=== PATIENT | male | born 1950 | race Caucasian/White ===

== ENCOUNTER 2018-12-06 12:06 | Inpatient (IN) ==
[2018-12-06] MEDS ORDERED: EPINEPHRINE ADULT AUTO-INJECT 0.3 MG SYR IM ONE (12:27)
[2018-12-06] MEDS ORDERED: DiphenhydrAMINE HCL 50 MG/ML VIAL IV STA ×2 (12:31→13:38)
[2018-12-06] MEDS ORDERED: methylPREDNISolone 125 MG/2 ML VIAL IV STA (12:31)
[2018-12-06] MEDS ORDERED: SODIUM CHLORIDE 0.9% 1000ML 1,000 ML IV ONE (12:32)
[2018-12-06] MEDS ORDERED: SODIUM CHLORIDE 0.9% 1000ML 1,000 ML IV SCH (12:45)
[2018-12-06 12:49] LABS: Basophils # (auto) 0.04 K/uL (0-0.2); Basophils % (auto) 0.6 %; Eosinophils % (auto) 1.5 %; Hemoglobin 14.7 g/dL (14.0-18.0); Immature Granulocytes # (auto) 0.01 K/uL (0.00-0.02); Immature Granulocytes % (auto) 0.1 %; Lymphocytes # (auto) 1.34 K/uL (1.2-3.4); Lymphocytes % (auto) 19.9 %; Mean Corpuscular Hemoglobin 37.6 pg (25-34); Mean Corpuscular Hgb Conc 36.8 g/dL (32-36); Mean Corpuscular Volume 102.3 fL (80-100); Mean Platelet Volume 10.4 fL (7.4-10.4); Monocytes # (auto) 0.91 K/uL (0.11-0.59); Monocytes % (auto) 13.5 %; Neutrophils # (auto) 4.32 K/uL (1.4-6.5); Neutrophils % (auto) 64.4 %; Platelet Count 212 K/uL (130-400); RDW Coefficient of Variation 13.4 % (11.5-14.5); RDW Standard Deviation 50.2 fL (36.4-46.3); Red Blood Count 3.91 M/uL (4.7-6.1); White Blood Count 6.72 K/uL (4.8-10.8)
[2018-12-06 12:56] LABS: Albumin Level 4.1 gm/dl (3.4-5.0); BUN Creatinine Ratio 17.7 (10-20); Calcium 9.4 mg/dl (8.5-10.1); Creatinine Clr Calc Pharmacy 80.6 ml/min; Est GFR (African American) 100.7; Est GFR (Non-African American) 86.9; Potassium 3.9 mmol/L (3.5-5.1)
[2018-12-06 12:59] LABS: Albumin Globulin Ratio 1.1 (0.9-2); Bilirubin,Total 1.4 mg/dl (0.2-1); Globulin 3.7 gm/dl (2.5-4.0); Total Protein 7.8 gm/dl (6.4-8.2)
--- NOTE | 2018-12-06 13:01 | XRay Report ---
XR chest 1V portable HISTORY: allergic reaction COMPARISON: None. FINDINGS: The lungs are clear. Cardiac silhouette is normal in size. No pleural effusions. No pneumot horax. IMPRESSION: No acute process. Electronically signed by: Lloyd Rush M.D. 12/06/2018 1:00 PM
[2018-12-06] MEDS ORDERED: RACEPINEPHRINE 2.25% NEBU SOLN 0.5 ML VIAL NEB STA (13:38)
--- NOTE | 2018-12-06 15:06 | History & Physical Report ---
Date of Service December 06, 2018 Assessment & Plan (1) Angioedema: Patient with 3 previous episodes of angioedema with each episode becoming more progressive. Patient received racemic epinephrine nebulizer, diphenhydramine, ranitidine, and Solu-Medrol in the emergency department We will admit to the intensive care unit for monitoring Patient does have dysphonia but overall clinically is improving Discussed with Dr. Hernandez. Continue methylprednisolone, diphenhydramine, racemic epinephrine nebulizers (2) Hypertension: Home medications include Coreg 6.25 mg p.o. twice daily as well as lisinopril/HCTZ as an outpatient Due to multiple episodes of angioedema, would discontinue lisinopril Will request records from patient's primary care physician Continue Coreg 6.25 mg p.o. twice daily. I have asked the nurse to do a bedside swallow eval to make sure the patient can take pills Further management of hypertension will be deferred to the critical care team (3) Hyperlipidemia: Continue atorvastatin (4) History of tobacco abuse: [id number] history. Quit smoking 40 years ago. No need for smoking cessation counseling. (5) DVT prophylaxis: No chemical prophylaxis in the event the patient needs to have emergent intubation SURESH hose/SCDs Please refer to Dr. Bryant's addendum for further recommendations. History of Present Illness Attending: Dr. Bryant This is a 68 yo male with a PMH of hypertension, hyperlipidemia, tobacco abuse history, seasonal allergies, previous angioedema. This is a 68-year-old male that is in town for the weekend. He lives in [place] but also has a home in [facility]. He was tailgating this weekend and this morning at approximately 8:30 AM, identified some tongue and throat swelling. He reports that this is happened 3 times in the past and that he self treated at home with Benadryl and over period of hours to a day it resolved at home. His notes that each episode seems to get more severe. Due to his history he has had presented to the emergency department where he was seen in room A1 and found to have angioedema with dysphonia. He has no respiratory distress and no hypoxia. He does have a coarse voice with no evidence of stridor on examination. The patient denies any recent illness. Aside from tailgating yesterday he has had no new or unusual foods no medications or new prescriptions. The patient denies any fever, chills, sweats, rigors. He has no cough. He has no chest pain or tightness. He has no other acute complaints. The patient does have an allergy to sulfa drugs. He also reports that on previous occasions he has had red or white wine prior to the angioedema. He has no other food or drug allergies per his report. The patient has a history of tobacco abuse with a [id number] history. He states that he states that he quit smoking 40 years ago. Aside from his acute angioedema, the patient has no acute complaints. Primary Care Provider: NO PCP Allergies Allergy/AdvReac Type Severity Reaction Status Date / Time lisinopril Allergy Severe Angioedema Verified 12/06/18 16:08 sulfite Allergy Swelling Verified 12/06/18 18:23 of Lip/Tongue/Throat Home Medications Home Medications Medication Instructions Recorded Confirmed Type atorvastatin [Lipitor] 40 mg PO QAM 12/06/18 12/06/18 History carvedilol [Coreg] 6.25 mg PO BID 12/06/18 12/06/18 History lisinopril-hydrochlorothiazide 1 tab PO QAM 12/06/18 12/06/18 History [Zestoretic] loratadine [Claritin] 10 mg PO QAM 12/06/18 12/06/18 History Past Med/Surg History Medical History Allergic reaction to sulfonamide DVT prophylaxis History of angioedema History of tobacco abuse Hyperlipidemia Hypertension No significant past surgical history Seasonal allergies Family History Other No significant family history Social History Preferred Language: Slovenian Communication Ability: Effective Beliefs That Will Affect Care: None Current Living Situation: Spouse Other Information That Helps Us Care for You: No Feels Safe at Home: Yes Safety Concerns: Feels Safe At This Time Smoking Status: Former smoker Hx Alcohol Use: Yes Alcohol type: beer and hard liquor Hx Substance Use: No Review of Systems Constitutional: no fever, no chills, no sweats, no body aches, no fatigue, no malaise and no weakness Eyes: no diplopia, no dry eyes, no itchy eyes and no photophobia Ear, Nose, Mouth, Throat: as per Subjective / HPI and + hoarseness (Hoarseness since this morning); no foul smell, no mouth lesions, no dental caries and no bleeding gums Respiratory: no cough, no dyspnea, no pain on inspiration, no sputum production and no wheezing Cardiovascular: no chest pain, no dyspnea, no palpitations and no calf pain Gastrointestinal: no nausea, no vomiting, no coffee ground emesis and no constipation Genitourinary: no hematuria Musculoskeletal: no muscle weakness Integumentary: no rash and no lesions Neurologic: no problem reported Endocrine: no polydipsia and no polyuria Allergy / Immunological: + throat swelling and + tongue swelling; no urticaria, no wheezing, no cough, no dyspnea and no rash Physical Exam Physical Exam: GENERAL : No acute distress. EYES: No icterus, gaze conjugate. Pupils equal round reactive to light NOSE: No evidence of epistaxis. No evidence of septal breech MOUTH: No lesions or candidiasis. Tongue is midline. There is soft tissue edema noted. Uvula is edematous. Mallampati score of 4. Posterior oropharynx noted below the uvula NECK: Supple. No stridor. LUNGS: CTA B/L, no wheezes, rales or rhonchi. HEART: Regular, rate controlled. No murmurs or gallops or rubs appreciated ABDOMEN: Soft, NT, ND, BS Present EXTREMITIES: No LE edema, pedal pulses intact. NEURO: A&OX3. No focal deficits appreciated Results & Data Vital Signs (Past 12 Hours) Vital Signs Temp Pulse Pulse Resp BP Pulse Ox 12/06/18 14:46 71 19 156/94 H 97 12/06/18 14:30 66 16 162/91 H 96 12/06/18 14:15 62 15 162/96 H 99 12/06/18 14:00 65 16 157/93 H 98 12/06/18 13:47 74 16 100 12/06/18 13:45 69 15 166/96 H 99 12/06/18 13:30 61 14 141/84 H 100 12/06/18 13:15 57 L 18 146/83 H 100 12/06/18 13:00 59 L 15 151/85 H 100 12/06/18 12:45 61 13 167/87 H 100 12/06/18 12:39 71 19 159/100 H 99 12/06/18 12:34 99 12/06/18 12:30 62 15 179/110 H 99 10/20/19 12:16 37.0 C 70 18 168/103 H 97 12/06/18 12:06 99 Laboratory Results 12/06/18 12:25 12/06/18 12:25 Diagnostic Findings XR chest 1V portable HISTORY: allergic reaction COMPARISON: None. FINDINGS: The lungs are clear. Cardiac silhouette is normal in size. No pleural effusions. No pneumothorax. IMPRESSION: No acute process. Electronically signed by: Lloyd Rush M.D. 12/06/2018 1:00 PM Medications Administered Medications administered in the emergency department: Diphenhydramine 50 mg IV x2 Racemic epinephrine nebulizer treatment Methylprednisolone 125 mg IV Ranitidine 50 mg IV NSS x2 L Code Status & VTE Plan Code Status Full resuscitation VTE Prophylaxis Plan VTE Prophylaxis will be ordered: Yes Critical Care Time Critical Care Time: Yes Total Critical Care Time: 35 Supervising Physician Co-Signing Physician Notes HISTORY: Record reviewed. Patient interviewed and examined. Care coordinated with Marco Antonio Webb PA-C. Please refer to his documentation for patient's history. Briefly, 68-year-old male with history of hypertension and other problems. Few incidence of apparent angioedema in the past, attributed to possible sulfite allergy. Medications include lisinopril/hydrochlorothiazide. Rarely uses nonsteroidal anti-inflammatory drugs. Developed swelling of his tongue and throat this morning and had progressive difficulty speaking. No stridor or respiratory distress. Brought to ED for evaluation. Received intravenous methylprednisolone, diphenhydramine, ranitidine, and racemic epinephrine with improvement of his symptoms. EXAM: General- no distress ENT- muffled voice; uvula edematous; mild-moderate swelling of tongue; no swelling of lips Neck- no stridor Lungs- clear to auscultation; no respiratory distress Cardiovascular- RRR; no murmur; no gallop; no JVD; no pretibial edema Abdomen- + bowel sounds, soft, nontender Extremities- no cyanosis; no calf tenderness Neuro- alert, oriented Skin- warm & dry DATA: Hemoglobin 14.7, white count 6720, platelet count 212,000. Peripheral eosinophil count 1.5%. Profile showed normal electrolytes, BUN 16, creatinine 0.91, glucose 87, total bilirubin 1.4, AST 84, ALT 71, alkaline phosphatase 59. Other lab studies as noted. Chest x-ray reviewed By the undersigned and formally interpreted by Radiology. Normal cardiac silhouette. No infiltrates, effusions, CHF. EKG performed at 1226 reviewed and demonstrated normal sinus rhythm at 70/ minute, no acute ST or T wave abnormalities. ASSESSMENT AND PLAN: Angioedema, most likely secondary to lisinopril. Discontinue lisinopril/hydrochlorothiazide. Avoid nonsteroidal anti-inflammatory drugs. Check C4 level. Continue steroids, antihistamines, racemic epi. Admit to ICU for monitoring of airway. CCM consulted. Continue carvedilol for hypertension. Discontinue lisinopril/hydrochlorothiazide because of angioedema. ANABELLA inhibitors should be avoided in the future. Add second antihypertensive agent to carvedilol if blood pressures significantly elevated. Follow and titrate therapy. Please refer to ERICA Webb's documentation for discussion of other issues. (1) Angioedema Encounter type: initial encounter Qualified Code(s): T78.3XXA - Angioneurotic edema, initial encounter
--- NOTE | 2018-12-06 16:46 | Emergency Department Note ---
Entered by Keisha Nichols acting as a scribe for History of Present Illness General Chief complaint: Allergic Reaction Source: patient and family History of Present Illness Onset (ago): hour(s) 4 Location: head (Allergic reaction) Severity: similar to prior episodes Pain Consistency: + other (Episode) Quality: + other (Allergic reaction) Exacerbated By: + other (Sulfa) Associated symptoms: + rash, + shortness of breath and + other (swelling, trouble speaking, trouble swallowing) The patient is a 68 year old male presenting to the Emergency Department co mplaining of an episode of an allergic reaction starting at 0830 today. The patients reports that the patient began to get a rash earlier this morning. She states that the patients mouth began to swell and that he became short of breath. She explains that the patient is having trouble speaking and swallowing. She notes that the patient is allergic to sulfates and drank white wine yesterday at 1700 and believes that the white wine had sulfates in it. She adds that the patients symptoms didnt begin until this morning. The patients reports that the patient has experienced these symptoms before. She states that about 1 year ago the patient drank Prosecco and experienced these same symptoms. The patient denies pertinent cardiac history. Home Medications Home Medications Medication Instructions Recorded Confirmed Type atorvastatin [Lipitor] 40 mg PO QAM 12/06/18 12/06/18 History carvedilol [Coreg] 6.25 mg PO BID 12/06/18 12/06/18 History lisinopril-hydrochlorothiazide 1 tab PO QAM 12/06/18 12/06/18 History [Zestoretic] loratadine [Claritin] 10 mg PO QAM 12/06/18 12/06/18 History amlodipine 5 mg PO DAILY #30 tab 12/07/18 Rx hydrochlorothiazide 25 mg PO QAM #30 tab 12/07/18 Rx prednisone 40 mg PO DAILY 3 Days #6 tab 12/07/18 Rx Allergies Allergy/AdvReac Type Severity Reaction Status Date / Time lisinopril Allergy Severe Angioedema Verified 12/06/18 16:08 sulfite Allergy Swelling Verified 12/06/18 18:23 of Lip/Tongue/Throat Past Med/Surg History Medical History Allergic reaction to sulfonamide DVT prophylaxis History of angioedema History of tobacco abuse Hyperlipidemia Hypertension No significant past surgical history Seasonal allergies Family History Other No significant family history Social History Preferred Language: Icelandic Communication Ability: Effective Beliefs That Will Affect Care: None Current Living Situation: Spouse Other Information That Helps Us Care for You: No Feels Safe at Home: Yes Safety Concerns: Feels Safe At This Time Smoking Status: Former smoker Hx Alcohol Use: Yes Alcohol type: beer and hard liquor Hx Substance Use: No Review of Systems See HPI for pertinent positives & negatives. and A total of 10 systems reviewed and were otherwise negative Physical Exam Vital Signs Vital Signs - 24 hr 12/06/18 12:06 12/06/18 12:16 12/06/18 12:30 Temperature 37.0 C Temperature Source Oral Sepsis Recent Fever Within 48 Hours No Sepsis New/Unexplained Change in Mental Status No Sepsis Action Taken by Nursing No Action Required Pulse Rate 70 62 Pulse Rate [Apical] Pulse Rate from SpO2 Sensor 61 Respiratory Rate 18 15 Respiratory Effort / Characteristics Non-Labored Spontaneous Blood Pressure 168/103 H 179/110 H Blood Pressure Mean 124 133 Blood Pressure Position Sitting Pulse Oximetry 99 97 99 Oxygen Delivery Method Room Air Room Air Room Air 12/06/18 12:34 12/06/18 12:39 12/06/18 12:45 Temperature Temperature Source Sepsis Recent Fever Within 48 Hours Sepsis New/Unexplained Change in Mental Status Sepsis Action Taken by Nursing Pulse Rate 71 61 Pulse Rate [Apical] Pulse Rate from SpO2 Sensor 69 62 Respiratory Rate 19 13 Respiratory Effort / Characteristics Blood Pressure 159/100 H 167/87 H Blood Pressure Mean 119 113 Blood Pressure Position Pulse Oximetry 99 99 100 Oxygen Delivery Method Room Air Room Air Room Air 12/06/18 13:00 12/06/18 13:15 12/06/18 13:30 Temperature Temperature Source Sepsis Recent Fever Within 48 Hours Sepsis New/Unexplained Change in Mental Status Sepsis Action Taken by Nursing Pulse Rate 59 L 57 L 61 Pulse Rate [Apical] Pulse Rate from SpO2 Sensor 59 L 58 L 59 L Respiratory Rate 15 18 14 Respiratory Effort / Characteristics Blood Pressure 151/85 H 146/83 H 141/84 H Blood Pressure Mean 107 104 103 Blood Pressure Position Pulse Oximetry 100 100 100 Oxygen Delivery Method Room Air Room Air Room Air 12/06/18 13:45 12/06/18 13:47 12/06/18 14:00 Temperature Temperature Source Sepsis Recent Fever Within 48 Hours Sepsis New/Unexplained Change in Mental Status Sepsis Action Taken by Nursing Pulse Rate 69 65 Pulse Rate [Apical] 74 Pulse Rate from SpO2 Sensor 69 67 Respiratory Rate 15 16 16 Respiratory Effort / Characteristics Spontaneous Blood Pressure 166/96 H 157/93 H Blood Pressure Mean 119 114 Blood Pressure Position Pulse Oximetry 99 100 98 Oxygen Delivery Method Room Air Room Air Room Air 12/06/18 14:15 12/06/18 14:30 12/06/18 14:46 Temperature Temperature Source Sepsis Recent Fever Within 48 Hours Sepsis New/Unexplained Change in Mental Status Sepsis Action Taken by Nursing Pulse Rate 62 66 71 Pulse Rate [Apical] Pulse Rate from SpO2 Sensor 63 68 72 Respiratory Rate 15 16 19 Respiratory Effort / Characteristics Blood Pressure 162/96 H 162/91 H 156/94 H Blood Pressure Mean 118 114 114 Blood Pressure Position Pulse Oximetry 99 96 97 Oxygen Delivery Method Room Air Room Air 12/06/18 15:00 12/06/18 15:15 12/06/18 15:30 Temperature Temperature Source Sepsis Recent Fever Within 48 Hours Sepsis New/Unexplained Change in Mental Status Sepsis Action Taken by Nursing Pulse Rate 65 66 65 Pulse Rate [Apical] Pulse Rate from SpO2 Sensor 64 65 67 Respiratory Rate 16 18 16 Respiratory Effort / Characteristics Blood Pressure 161/94 H 146/90 H 152/95 H Blood Pressure Mean 116 108 114 Blood Pressure Position Pulse Oximetry 97 95 96 Oxygen Delivery Method 12/06/18 15:45 12/06/18 16:00 Temperature Temperature Source Sepsis Recent Fever Within 48 Hours Sepsis New/Unexplained Change in Mental Status Sepsis Action Taken by Nursing Pulse Rate 66 78 Pulse Rate [Apical] Pulse Rate from SpO2 Sensor 67 80 Respiratory Rate 16 27 H Respiratory Effort / Characteristics Blood Pressure 150/90 H Blood Pressure Mean 110 Blood Pressure Position Pulse Oximetry 95 98 Oxygen Delivery Method Vital signs reviewed. General: Well-appearing 68 year old male, in no significant distress. HEENT: Posterior oropharynx is markedly edematous with enlarged uvula with severe edema. No tongue swelling. Patient is not drooling. No rash. No scleral icterus, PERRLA, neck supple. Atraumatic. Cardiovascular: Regular rate and rhythm, no extra sounds. Pulmonary: Clear to auscultation bilaterally, normal work of breathing. Abdomen: Soft, nontender, nondistended, positive bowel sounds. Musculoskeletal: Atraumatic, no peripheral edema. Neurologic: Patient awake alert and oriented x 3 Skin: Warm, dry, no rash Course 1224: The patient was evaluated in room A1, and a complete history and physical examination were performed. 1331: I reevaluated the patient at this time. 1331: I reevaluated the patient at this time. I will order an epinephrine nebulizer and additional Benadryl. 1405: I reevaluated the patient at this time. 1412: I discussed the patients case with Dr. Gregoria Handley hospitalist. He will evaluate the patient for further management. 1416: I discussed the patients case with Dr. Hernandez Director Of Recruiting. Administered Medications Atorvastatin Calcium (Lipitor) 40 mg PO QAM [facility] Stop: 01/06/19 08:59 Last Admin: 12/07/18 07:56 Dose: 40 mg Documented by: [id number] Carvedilol (Coreg) 6.25 mg PO BID [facility] Stop: 01/05/19 20:59 Last Admin: 12/07/18 07:56 Dose: 6.25 mg Documented by: [id number] Admin: 12/06/18 20:00 Dose: 6.25 mg Documented by: [id number] Epinephrine (Raccemic Epinephrine 2.25% 0.5ml) 0.5 ml NEB Q4 PRN PRN Reason: Allergic Reaction Stop: 01/05/19 18:15 Last Admin: 12/06/18 23:22 Dose: 0.5 ml Documented by: [id number] Hydralazine HCl (Hydralazine Hcl) 5 mg IV Q4 PRN PRN Reason: Hypertension Stop: 01/05/19 18:17 Last Admin: 12/06/18 18:37 Dose: 5 mg Documented by: [id number] Sodium Chloride (Nss 1000ml) 1,000 mls @ 75 mls/hr IV .[id number] [facility] Stop: 01/05/19 16:47 Last Admin: 12/07/18 06:18 Dose: 75 mls/hr Documented by: [id number] Infusion: 12/07/18 06:17 Dose: 75 mls/hr Documented by: [id number] Admin: 12/06/18 16:57 Dose: 75 mls/hr Documented by: [id number] Discontinued Medications Amlodipine Besylate (Norvasc) 5 mg PO NOW ONE Stop: 12/07/18 08:50 Last Admin: 12/07/18 10:17 Dose: 5 mg Documented by: [id number] Diphenhydramine HCl (Benadryl) 50 mg IV NOW [facility] Stop: 12/06/18 12:32 Last Admin: 12/06/18 12:35 Dose: 50 mg Documented by: [id number] Diphenhydramine HCl (Benadryl) 50 mg IV NOW STA Stop: 12/06/18 13:39 Last Admin: 12/06/18 13:49 Dose: 50 mg Documented by: [id number] Diphenhydramine HCl (Benadryl) Confirm Administered Dose 50 mg .ROUTE .STK-MED ONE Stop: 12/06/18 16:48 Last Admin: 12/06/18 17:36 Dose: Not Given Documented by: [id number] Diphenhydramine HCl (Benadryl) 25 mg IV Q6H [facility] Stop: 01/05/19 17:59 Last Admin: 12/07/18 06:03 Dose: 25 mg Documented by: [id number] Admin: 12/07/18 00:09 Dose: 25 mg Documented by: [id number] Admin: 12/06/18 16:55 Dose: 25 mg Documented by: [id number] Epinephrine (Raccemic Epinephrine 2.25% 0.5ml) 0.5 ml NEB NOW STA Stop: 12/06/18 13:39 Last Admin: 12/06/18 13:44 Dose: 0.5 ml Documented by: [id number] Epinephrine (Raccemic Epinephrine 2.25% 0.5ml) 0.5 ml NEB Q8R [facility] Stop: 01/05/19 22:59 Last Admin: 12/06/18 17:39 Dose: 0.5 ml Documented by: [id number] Epinephrine HCl (Epipen) Confirm Administered Dose 0.3 mg IM .STK-MED ONE Stop: 12/06/18 12:28 Last Admin: 12/06/18 12:29 Dose: 0.3 mg Documented by: [id number] Etomidate (Amidate) Confirm Administered Dose 40 mg IV .STK-MED ONE Stop: 12/06/18 17:32 Last Admin: 12/07/18 06:00 Dose: Not Given Documented by: [id number] Sodium Chloride (Nss 1000ml) 1,000 mls @ 999 mls/hr IV .Q1H1M [facility] Stop: 12/06/18 13:45 Last Admin: 12/06/18 12:42 Dose: Not Given Documented by: [id number] Sodium Chloride (Nss 1000ml) 1,000 mls @ 999 mls/hr IV .Q1H1M ONE Stop: 12/06/18 13:32 Last Infusion: 12/06/18 13:37 Dose: 0 mls/hr Documented by: [id number] Admin: 12/06/18 12:36 Dose: 999 mls/hr Documented by: [id number] Ranitidine HCl 50 mg/ Dextrose 102 mls @ 200 mls/hr IV NOW STA Stop: 12/06/18 13:01 Last Infusion: 12/06/18 13:23 Dose: 0 mls/hr Documented by: [id number] Admin: 12/06/18 12:52 Dose: 200 mls/hr Documented by: [id number] Methylprednisolone 40 mg/ (Syringe) 0.64 mls @ 1.5 mls/min IV Q8H [facility] Stop: 01/05/19 19:59 Last Admin: 12/07/18 03:56 Dose: 1.5 mls/min Documented by: [id number] Admin: 12/06/18 19:59 Dose: 1.5 mls/min Documented by: [id number] Methylprednisolone (Solumedrol) 125 mg IV NOW STA Stop: 12/06/18 12:32 Last Admin: 12/06/18 12:35 Dose: 125 mg Documented by: [id number] Propofol (Diprivan) Confirm Administered Dose 1,000 mg IV .STK-MED ONE Stop: 12/06/18 17:31 Last Admin: 12/07/18 06:17 Dose: Not Given Documented by: [id number] Medical Decision Making Differential Diagnosis Differential diagnosis: Etiologies such as allergic reaction, anaphylaxis, urticaria, angioedema, Givens-Raymundo syndrome, toxic epidermal necrolysis, erythema multiforme, cellulitis, as well as others were entertained. Medical Records Attestation: I reviewed the patient's medical records. Home Medications Current Medication List: was personally reviewed by me Laboratory Data Attestation: I reviewed the patient's lab results. Result diagrams: 12/07/18 04:23 12/07/18 04:23 Lab Results 12/06/18 12/06/18 Range/Units 12:25 12:25 WBC 6.72 (4.8-10.8) K/uL RBC 3.91 L (4.7-6.1) M/uL Hgb 14.7 (14.0-18.0) g/dL Hct 40.0 L (42-52) % MCV 102.3 H (80-100) fL MCH 37.6 H (25-34) pg MCHC 36.8 H (32-36) g/dL RDW Std Deviation 50.2 H (36.4-46.3) fL RDW Coeff of Sandra 13.4 (11.5-14.5) % Plt Count 212 (130-400) K/uL MPV 10.4 (7.4-10.4) fL Immature Gran % (Auto) 0.1 % Neut % (Auto) 64.4 % Lymph % (Auto) 19.9 % Bartholomew % (Auto) 13.5 % Eos % (Auto) 1.5 % Baso % (Auto) 0.6 % Immature Gran # (Auto) 0.01 (0.00-0.02) K/uL Neut # (Auto) 4.32 (1.4-6.5) K/uL Lymph # (Auto) 1.34 (1.2-3.4) K/uL Bartholomew # (Auto) 0.91 H (0.11-0.59) K/uL Eos # (Auto) 0.10 (0-0.5) K/uL Baso # (Auto) 0.04 (0-0.2) K/uL Sodium 137 (136-145) mmol/L Potassium 3.9 (3.5-5.1) mmol/L Chloride 101 (98-107) mmol/L Carbon Dioxide 28 (21-32) mmol/L Anion Gap 8.0 (3-11) BUN 16 (7-18) mg/dl Creatinine 0.91 (0.6-1.4) mg/dl Est Cr Clr Drug Dosing 80.6 ml/min Est GFR ( Amer) 100.7 Est GFR (Non-Af Amer) 86.9 BUN/Creatinine Ratio 17.7 (10-20) Glucose 87 (70-99) mg/dl Calcium 9.4 (8.5-10.1) mg/dl Total Bilirubin 1.4 H (0.2-1) mg/dl AST 84 H (15-37) U/L ALT 71 (12-78) U/L Alkaline Phosphatase 59 (45-117) U/L Total Protein 7.8 (6.4-8.2) gm/dl Albumin 4.1 (3.4-5.0) gm/dl Globulin 3.7 (2.5-4.0) gm/dl Albumin/Globulin Ratio 1.1 (0.9-2) Imaging Data Radiologist's Impression: Radiology results as stated below per my review and the radiologist's interpretation: XR chest 1V portable HISTORY: allergic reaction COMPARISON: None. FINDINGS: The lungs are clear. Cardiac silhouette is normal in size. No pleural effusions. No pneumothorax. IMPRESSION: No acute process. Electronically signed by: Lloyd Rush M.D. 12/06/2018 1:00 PM ECG Data Attestation: I personally reviewed and interpreted this ECG as follows: Indication: SOB/dyspnea and other (Allergic reaction) Rate (beats per minute): 67 Rhythm: normal sinus Findings: + other (Previous septal infarct. ); no acute ischemic change and no ectopy Blood Pressure Blood Pressure Findings: Elevated blood pressure Blood Pressure Disposition: further management by hospitalist MDM Narrative This pt was evaluated and appeared to be in no distress, but was unable to speak. There was no tongue protrusion/facial edema or rash. Pt was given IM epi, IV solumedral and IV benadryl. IV NSS was administered. After alejandro above, pt was able to speak, but exam revealed marked edema of the posterior oropharynx and uvula. Review of med list reveals lisinopril. Pt and relate swelling to white white ingestion, however I believe the presentation is more c/w angioedema. Pt was given a racemic epi nebulizer and additional benadryl. Case was d/w Dr. Bryant of the hospitalist service and Dr. Hernandez of ICU. Pt will be closely monitored for airway, he is not in need of intubation at this time. Pt and expressed an understanding of the plan and agree. Impression & Plan Angioedema Critical Care Time Critical Care Time: Yes Total Critical Care Time: 32 I have personally spent 32 minutes of critical care time in the direct management of this patient. This includes bedside care, interpretation of diagnostic studies, and testing, discussion with consultants, patient, and family members, and other required patient management activities. This 32 minutes is in excess of all separately billable procedures. Discharge Plan Visit Data *Final* Discharge Date/Time: 12/06/18 16:35 Chief Complaint: Allergic Reaction ED Provider: Kelley Cruz Discharge Problem: Angioedema Patient Disposition: Admitted As Inpatient Discharge Instructions Interventions: ED Discharge Assessment Last Done: 12/06/18 16:35 Discharge Problem: Angioedema Qualifiers: Encounter type: initial encounter Qualified Code(s): T78.3XXA - Angioneurotic edema, initial encounter The scribe's documentation has been prepared under my direction and personally reviewed by me in its entirety. I confirm that the note above accurately reflects all work, treatment, procedures, and medical decision making performed by me.
[2018-12-06] MEDS ORDERED: DiphenhydrAMINE HCL 50 MG/ML VIAL ONE (16:47)
[2018-12-06] MEDS ORDERED: ICU PROTOCOL FOR HYPERGLYCEMIA PRN (16:48)
[2018-12-06] MEDS: DiphenhydrAMINE HCL 50 MG/ML VIAL IV SCH (16:55)
[2018-12-06] MEDS: SODIUM CHLORIDE 0.9% 1000ML 1,000 ML IV SCH (16:57)
[2018-12-06] MEDS ORDERED: PROPOFOL IV EMULSION 10 MG/ML 100 ML VIAL IV ONE (17:30)
[2018-12-06] MEDS ORDERED: ETOMIDATE 2 MG/ML 20 ML VIAL IV ONE (17:31)
[2018-12-06] MEDS ORDERED: RACEPINEPHRINE 2.25% NEBU SOLN 0.5 ML VIAL NEB PRN (18:16)
[2018-12-06] MEDS ORDERED: HydrALAZINE HCL 20 MG/ML VIAL IV PRN (18:18)
--- NOTE | 2018-12-06 18:34 | Critical Care Consultation ---
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 His airway is certainly of concern although it appears to be stabilized over the last 45 minutes to hour. Recommendations: 1. Angioedema: I suspect this is related to ANABELLA inhibitors. This is not typically an histamine mediated or mast cell mediated process it is more likely related to the bradykinin pathway. He has no evidence of eosinophilia. Nevertheless there is low risk of proceeding with Solu-Medrol, H1 and H2 blockers. We will continue humidified coolmist oxygen and racemic nebs as needed. I advised the patient that if we need to secure an airway, this should be done semi-electively rather than urgently. He expressed understanding and states that he will let us know if he feels any progressive symptoms of throat swelling or if he loses his ability to talk. I will discuss the case with anesthesia and ensure that they are able to electively intubate the patient if needed overnight. Anecdotal evidence exists for FFP although the physiologic mechanism for that is not robust and randomized trials have not shown a sign ificant benefit. Bradykinin inhibitors such as icatibant or ecallantide are available and I have a call to the pharmacy to see whether or not we have these medications stocked although again the data supporting the use is quite variable. Hopefully the patient will stabilize over time without quire meant for a adjuvant airway. C1 esterase inhibitor has been requested and I will add C3, C4, and CH 50 levels. 2. Hypertension: Continue carvedilol as long as the patient can swallow pills. PRN hydralazine will be used. Lisinopril will be added to his allergies and he should avoid this medication at all cost. 3. Hyperlipidemia: Home atorvastatin will be continued. 4. Continue to observe in the ICU. (2) Hypertension: (3) Airway compromise: History of Present Illness Attending Physician: Scott Shukla MD History of Present Illness Asked by Dr. Bryant to assist in management of airway swelling, possibly angioedema. History is obtained from discussion with the admitting service, review the electronic medical record, discussion with the patient and his at the bedside. Patient is a 68-year-old male who is visiting from out of town. He has a long- standing history of hypertension and is been on Coreg and lisinopril. He has had 3-4 episodes of throat swelling in the past which have not been severe enough to seek medical attention and typically have resolved with Benadryl at home. He states that around 830 this morning he had some tongue and throat swelling. He presented to the emergency room. He was found to have dysphonia at that point in time but was handling secretions well. He received Solu- Medrol, Benadryl, and Zantac IV as well as a racemic epinephrine neb. He was not felt to require urgent airway management at that point time and was stable for admission to the intensive care unit. I presented to the ICU to evaluate the patient. On my arrival, the patient was unable to phonate and had developed significant tongue swelling and large blister formations in the lingual area. I discussed with the patient and recommended that given his progression of symptoms that we pursue an airway semi-electively and we were making preparations for an awake fiberoptic intubation however during our preparation the patient states that he felt that the swelling was decreased and on repeat exam he had improvement in the tongue swelling and resolution of the sublingual blister formation. I was able to visualize the posterior palate. Given his clinical improvement we elected to proceed with clinical observation at this point time. Patient is never been tested for C1 esterase inhibitor that he is aware of. He has not had allergy testing performed previously. He is currently able to phonate and sneezed he is managing his secretions and able to swallow but he does feel some thickness in the back of his throat. Allergies Allergy/AdvReac Type Severity Reaction Status Date / Time lisinopril Allergy Severe Angioedema Verified 12/06/18 16:08 sulfite Allergy Swelling Verified 12/06/18 18:23 of Lip/Tongue/Throat Home Medications Home Medications Medication Instructions Recorded Confirmed Type atorvastatin [Lipitor] 40 mg PO QAM 12/06/18 12/06/18 History carvedilol [Coreg] 6.25 mg PO BID 12/06/18 12/06/18 History lisinopril-hydrochlorothiazide 1 tab PO QAM 12/06/18 12/06/18 History [Zestoretic] loratadine [Claritin] 10 mg PO QAM 12/06/18 12/06/18 History Patient History Medical History Allergic reaction to sulfonamide DVT prophylaxis History of angioedema History of tobacco abuse Hyperlipidemia Hypertension No significant past surgical history Seasonal allergies Family History Other No significant family history Social History Preferred Language: Croatian Communication Ability: Effective Beliefs That Will Affect Care: None Current Living Situation: Spouse Other Information That Helps Us Care for You: No Feels Safe at Home: Yes Safety Concerns: Feels Safe At This Time Smoking Status: Former smoker Hx Alcohol Use: Yes Alcohol type: beer and hard liquor Hx Substance Use: No Results & Data Vital Signs (Past 12 Hours) Vital Signs Temp Pulse Pulse Resp BP Pulse Ox 12/06/18 17:39 73 16 97 12/06/18 17:30 77 22 97 12/06/18 17:12 37.2 C 78 13 167/103 H 96 12/06/18 16:05 65 15 162/92 H 98 12/06/18 16:01 76 15 158/106 H 99 12/06/18 16:00 78 27 H 98 12/06/18 15:45 66 16 150/90 H 95 12/06/18 15:30 65 16 152/95 H 96 12/06/18 15:15 66 18 146/90 H 95 12/06/18 15:00 65 16 161/94 H 97 12/06/18 14:46 71 19 156/94 H 97 12/06/18 14:30 66 16 162/91 H 96 12/06/18 14:15 62 15 162/96 H 99 12/06/18 14:00 65 16 157/93 H 98 12/06/18 13:47 74 16 100 12/06/18 13:45 69 15 166/96 H 99 12/06/18 13:30 61 14 141/84 H 100 12/06/18 13:15 57 L 18 146/83 H 100 12/06/18 13:00 59 L 15 151/85 H 100 12/06/18 12:45 61 13 167/87 H 100 12/06/18 12:39 71 19 159/100 H 99 12/06/18 12:34 99 12/06/18 12:30 62 15 179/110 H 99 12/06/18 12:16 37.0 C 70 18 168/103 H 97 12/06/18 12:06 99 Laboratory Results 12/06/18 12:25 12/06/18 12:25 No eosinophilia noted Diagnostic Findings Chest x-ray from 12/06/2018 was independently reviewed. Lungs are well aerated. No focal airspace opacities. Cardiac and mediastinal silhouettes unremarkable. Coding Level of Care Code None Diagnoses Angioedema T78.3XXA Encounter type: initial encounter Hypertension I10 Airway compromise J98.8 Time Spent (min) 60 Comment 60 minutes critical care time to this point (1) Angioedema Encounter type: initial encounter Qualified Code(s): T78.3XXA - Angioneurotic edema, initial encounter
[2018-12-06] MEDS: methylPREDNISolone 40 MG in SYRINGE 0 ML IV SCH (19:59)
[2018-12-06] MEDS: carvediloL 6.25 MG TAB PO SCH (20:00)
[2018-12-06] MEDS ORDERED: RACEPINEPHRINE 2.25% NEBU SOLN 0.5 ML VIAL NEB SCH (23:00)
[2018-12-07] MEDS: DiphenhydrAMINE HCL 50 MG/ML VIAL IV SCH ×2 (00:09→06:03)
[2018-12-07] MEDS: methylPREDNISolone 40 MG in SYRINGE 0 ML IV SCH (03:56)
[2018-12-07 04:34] LABS: Hematocrit (blood only) 37.8 % (42-52); Hemoglobin 13.7 g/dL (14.0-18.0); Lymphocytes # (auto) 0.56 K/uL (1.2-3.4); Lymphocytes % (auto) 10.8 %; Mean Corpuscular Hgb Conc 36.2 g/dL (32-36); Mean Corpuscular Volume 102.2 fL (80-100); Mean Platelet Volume 10.1 fL (7.4-10.4); Monocytes # (auto) 0.06 K/uL (0.11-0.59); Monocytes % (auto) 1.2 %; Neutrophils # (auto) 4.56 K/uL (1.4-6.5); Platelet Count 198 K/uL (130-400); RDW Coefficient of Variation 13.4 % (11.5-14.5); RDW Standard Deviation 49.9 fL (36.4-46.3); White Blood Count 5.18 K/uL (4.8-10.8)
[2018-12-07 04:52] LABS: BUN Creatinine Ratio 18.4 (10-20); Calcium 8.3 mg/dl (8.5-10.1); Creatinine Clr Calc Pharmacy 76.3 ml/min; Est GFR (African American) 93.2; Est GFR (Non-African American) 80.5; Magnesium 1.5 mg/dl (1.8-2.4); Phosphorus 3.8 mg/dl (2.5-4.9); Potassium 3.8 mmol/L (3.5-5.1)
[2018-12-07] MEDS: SODIUM CHLORIDE 0.9% 1000ML 1,000 ML IV SCH (06:18)
[2018-12-07] MEDS: carvediloL 6.25 MG TAB PO SCH (07:56)
--- NOTE | 2018-12-07 08:02 | Critical Care Progress Note ---
Date of Service December 07, 2018 Assessment & Plan (1) Admitted to intensive care unit: Reason Critically Ill: 68yo male admitted with angioedema secondary to likely ANABELLA inhibitor use. NEURO - CAM ICU: NEGATIVE No intubation required during his stay. CARDIAC/VASCULAR - Hx of HTN, HLD HTN -Pt's home regimen included Lisinopril 20mg-HCTZ 25mg, Coreg 6.25mg BID. -D/C home lisinopril regimen -treated with Coreg and HCTZ while hospitalized, added amlodipine 5mg. -Recommend current regimen as above for discharge until seen by PCP HLD -continue home statin RESPIRATORY - Angioedema -Pt presented with swollen tongue and throat -CURRENTLY STABLE -States this has happened before in relation to wine, which he could have been exposed to over the weekend -continue methylpred, diphenhydramine and racemic epi for possible anaphylactic component -will discharge with epi pen and prednisone 40mg for the next 3 days GI/NUTRITION - -Diet given this AM; tolerated well before discharge DVT PROPHYLAXIS - SCDs Supervising Physician Co-Signing Physician Notes Dr. Scott was the resident-physician during care of patient. I separately evaluated patient for fierro portions of the history and the exam. I was present during the critical portion of medical decision making, and I discussed the case with the resident. I generally agree with the findings and plan except for any additions/exceptions noted. Patient was discussed on multidisciplinary rounds and with the hospitalist. Patient appears to be doing much better. There is no tongue or lip swelling present. I think he is safe to be discharged home today. We will continue a course of prednisone for 3 days at 40 mg. He needs close follow-up with allergy and immunology. Follow-up on C1 esterase and complement levels. Needs to be discharged with an EpiPen. He needs to avoid ANABELLA inhibitors and angiotensin receptor blockers completely. We have started him on amlodipine 5 mg. We will continue his carvedilol and hydrochlorothiazide. Subjective Pt states he is doing well this AM. Denies any feeling of SOB, a swollen tongue or itchy/closing throat. No change to voice. States he has been very stable and symptoms have dramatically improved since admission. Also denies MORRIS, blurry vision, chest pain, palpitations, N/V, abd pain, diarrhea or constipation, swelling in the hands or feet or numbness and tingling anywhere. Review of Systems Review of Systems: All systems reviewed & are unremarkable except as noted in HPI & below Physical Exam Physical Exam: General: Alert, oriented. No acute distress, no change to voice. Skin: No noted rashes or bruising Psych: Appropriate mood and affect Neuro: No gross deficits noted HEENT: NC/AT, PERRLA, EOMI, oropharynx moist with no evidence of swelling of the tongue, or enlarged tonsils. Chest: Nontender to palpation. CV: RRR, Normal s1, s2. No murmurs appreciated Resp: Breath sounds clear bilaterally somewhat decreased, no increased effort of breathing. No crackles/rhonchi/rales. Abdomen:Soft, nontender, nondistended. No guarding. No organomegaly appreciated. Extremities: No edema in lower extremities bilaterally. Results & Data Vital Signs (Past 12 Hours) Vital Signs Temp Pulse Pulse Resp BP Pulse Ox 12/07/18 07:38 78 18 96 12/07/18 05:00 66 18 119/75 94 12/07/18 04:00 36.6 C 80 24 119/75 98 12/07/18 03:00 72 23 125/75 97 12/07/18 02:00 64 17 123/78 98 12/07/18 01:00 68 14 142/85 H 98 12/07/18 00:00 36.6 C 66 17 121/78 96 12/06/18 23:22 78 19 99 12/06/18 23:00 75 18 130/88 99 12/06/18 22:00 73 13 146/82 H 99 12/06/18 21:00 91 H 24 130/84 98 Laboratory Results Laboratory Results - last 24 hr 12/06/18 12/06/18 12/06/18 12:25 12:25 16:50 WBC 6.72 RBC 3.91 L Hgb 14.7 Hct 40.0 L MCV 102.3 H MCH 37.6 H MCHC 36.8 H RDW Std Deviation 50.2 H RDW Coeff of Sandra 13.4 Plt Count 212 MPV 10.4 Immature Gran % (Auto) 0.1 Neut % (Auto) 64.4 Lymph % (Auto) 19.9 [place] % (Auto) 13.5 Eos % (Auto) 1.5 Baso % (Auto) 0.6 Immature Gran # (Auto) 0.01 Neut # (Auto) 4.32 Lymph # (Auto) 1.34 [place] # (Auto) 0.91 H Eos # (Auto) 0.10 Baso # (Auto) 0.04 Sodium 137 Potassium 3.9 Chloride 101 Carbon Dioxide 28 Anion Gap 8.0 BUN 16 Creatinine 0.91 Est Cr Clr Drug Dosing 80.6 Est GFR ( Amer) 100.7 Est GFR (Non-Af Amer) 86.9 BUN/Creatinine Ratio 17.7 Glucose 87 Calcium 9.4 Phosphorus Magnesium Total Bilirubin 1.4 H AST 84 H ALT 71 Alkaline Phosphatase 59 Total Protein 7.8 Albumin 4.1 Globulin 3.7 Albumin/Globulin Ratio 1.1 Nasal Screen MRSA (PCR) Positive A C1 Esterase Inhibitor Complement C3 Complement C4 Tot Complement (CH50) 12/06/18 12/07/18 12/07/18 18:41 04:23 04:23 WBC 5.18 RBC 3.70 L Hgb 13.7 L Hct 37.8 L MCV 102.2 H MCH 37.0 H MCHC 36.2 H RDW Std Deviation 49.9 H RDW Coeff of Sandra 13.4 Plt Count 198 MPV 10.1 Immature Gran % (Auto) 0.0 Neut % (Auto) 88.0 Lymph % (Auto) 10.8 [place] % (Auto) 1.2 Eos % (Auto) 0.0 Baso % (Auto) 0.0 Immature Gran # (Auto) 0.00 Neut # (Auto) 4.56 Lymph # (Auto) 0.56 L [place] # (Auto) 0.06 L Eos # (Auto) 0.00 Baso # (Auto) 0.00 Sodium 139 Potassium 3.8 Chloride 105 Carbon Dioxide 24 Anion Gap 10.0 BUN 18 Creatinine 0.97 Est Cr Clr Drug Dosing 76.3 Est GFR ( Amer) 93.2 Est GFR (Non-Af Amer) 80.5 BUN/Creatinine Ratio 18.4 Glucose 141 H Calcium 8.3 L Phosphorus 3.8 Magnesium 1.5 L Total Bilirubin AST ALT Alkaline Phosphatase Total Protein Albumin Globulin Albumin/Globulin Ratio Nasal Screen MRSA (PCR) C1 Esterase Inhibitor Complement C3 Pending Complement C4 Pending Tot Complement (CH50) Pending 12/07/18 04:23 WBC RBC Hgb Hct MCV MCH MCHC RDW Std Deviation RDW Coeff of Sandra Plt Count MPV Immature Gran % (Auto) Neut % (Auto) Lymph % (Auto) [place] % (Auto) Eos % (Auto) Baso % (Auto) Immature Gran # (Auto) Neut # (Auto) Lymph # (Auto) [place] # (Auto) Eos # (Auto) Baso # (Auto) Sodium Potassium Chloride Carbon Dioxide Anion Gap BUN Creatinine Est Cr Clr Drug Dosing Est GFR ( Amer) Est GFR (Non-Af Amer) BUN/Creatinine Ratio Glucose Calcium Phosphorus Magnesium Total Bilirubin AST ALT Alkaline Phosphatase Total Protein Albumin Globulin Albumin/Globulin Ratio Nasal Screen MRSA (PCR) C1 Esterase Inhibitor Pending Complement C3 Complement C4 Tot Complement (CH50) Medications Administered Home Medications atorvastatin [Lipitor] 40 mg PO QAM 12/06/18 [History Confirmed 12/06/18] carvedilol [Coreg] 6.25 mg PO BID 12/06/18 [History Confirmed 12/06/18] loratadine [Claritin] 10 mg PO QAM 12/06/18 [History Confirmed 12/06/18] amlodipine 5 mg PO DAILY #30 tab 12/07/18 [Rx] epinephrine [EpiPen 2-Nikolas] 0.3 mg IM Q3H PRN #2 ea 12/07/18 [Rx] hydrochlorothiazide 25 mg PO QAM #30 tab 12/07/18 [Rx] prednisone 40 mg PO DAILY 3 Days #6 tab 12/07/18 [Rx] Active Medications Atorvastatin Calcium (Lipitor) 40 mg PO QAM [facility] Stop: 01/06/19 08:59 Last Admin: 12/07/18 07:56 Dose: 40 mg Documented by: Carvedilol (Coreg) 6.25 mg PO BID [facility] Stop: 01/05/19 20:59 Last Admin: 12/07/18 07:56 Dose: 6.25 mg Documented by: Epinephrine (Raccemic Epinephrine 2.25% 0.5ml) 0.5 ml NEB Q4 PRN PRN Reason: Allergic Reaction Stop: 01/05/19 18:15 Last Admin: 12/06/18 23:22 Dose: 0.5 ml Documented by: Hydralazine HCl (Hydralazine Hcl) 5 mg IV Q4 PRN PRN Reason: Hypertension Stop: 01/05/19 18:17 Last Admin: 12/06/18 18:37 Dose: 5 mg Documented by: Hydrochlorothiazide (Hctz) 25 mg PO QAM [facility] Stop: 01/06/19 10:29 Sodium Chloride (Nss 1000ml) 1,000 mls @ 75 mls/hr IV .[id number] LEE Stop: 01/05/19 16:47 Last Admin: 12/07/18 06:18 Dose: 75 mls/hr Documented by: Miscellaneous (Icu Protocol For Hyperglycemia) 1 ea N/A PRN PRN; Protocol PRN Reason: Hyperglycemia Protocol Stop: 12/08/18 16:47 PG Care Time/CCT Total # of Minutes Spent Total Time Spent with Patient: Total time spent is greater than 50% in coordination of care (as documented) at patient's floor/unit and/or counseling patient: Resident Activity Tracking Resident Involvement: Resident Care Provided Care Provided: Adult Hospital Medicine
[2018-12-07] MEDS ORDERED: AMLODIPINE BESYLATE 5 MG TAB PO ONE (08:49)
[2018-12-07] MEDS ORDERED: ATORVASTATIN 40 MG TAB PO SCH (09:00)
[2018-12-07] MEDS ORDERED: hydroCHLOROthiazide 25 MG TAB PO SCH (10:30)
--- NOTE | 2018-12-07 11:37 | Hospitalist Progress Note ---
Date of Service December 07, 2018 Assessment & Plan (1) Angioedema: Admitted with the swelling of the tongue and throat and noted to have angioedema in the emergency room Has been on lisinopril for many years Suspected cause seems to be lisinopril Appreciate python django developer input and recommendation Received methylprednisone, diphenhydramine and racemic epinephrine Clinically improved without any evidence of throat and/or lip swelling Like to be discharged this afternoon Present on Admission?: Yes (2) Hypertension: Blood pressure was noted to be high on admission His lisinopril will be discontinued altogether The pressure is holding up nicely this morning (3) Hyperlipidemia: Continue current medication (4) History of tobacco abuse: Advised to quit smoking (5) DVT prophylaxis: SCDs and ambulation Discussed with python django developer Patient ready to be discharged from the hospital Advised not to use any more lisinopril or ARB Subjective 12/07 The patient was seen and examined in ICU He was admitted with angioedema secondary to use of lisinopril His symptoms have resolved as of this morning Denies any throat fullness, swelling, shortness of breath and has been eating normal Denies any other symptoms Review of Systems Review of Systems: All systems reviewed and are unremarkable except as noted below Constitutional: + weakness Respiratory: no cough and no dyspnea Cardiovascular: no chest pain Neurologic: Alert awake and oriented x3,. No focal sensory and motor deficit appreciated Physical Exam Physical Exam: No apparent distress at rest Constitutional: well developed and well nourished; no acute distress and not ill appearing Eyes: PERRL, conjunctivae normal, anicteric sclerae ENMT: external ear and nose normal, oropharynx normal Neck: trachea midline, no thyromegaly Respiratory: normal respiratory effort; no respiratory distress Auscultation: lungs clear to auscultation bilaterally Cardiovascular: Rate/Rhythm: regular rate and regular rhythm Heart Sounds: no murmur Gastrointestinal (Abdomen): Inspection/Auscultation: abdomen normal to inspection and normal bowel sounds; abdomen not distended Percussion/Palpation: abdomen soft Musculoskeletal: No acute arthritis in any joint Neurologic: moves all extremities; no focal motor deficits Psychiatric: A+Ox3, euthymic affect Results & Data Vital Signs (Past 12 Hours) Vital Signs Temp Pulse Pulse Resp BP Pulse Ox 12/07/18 11:32 36.6 C 78 18 96 10/21/19 07:38 78 18 96 12/07/18 05:00 66 18 119/75 94 12/07/18 04:00 36.6 C 80 24 119/75 98 12/07/18 03:00 72 23 125/75 97 12/07/18 02:00 64 17 123/78 98 12/07/18 01:00 68 14 142/85 H 98 12/07/18 00:00 36.6 C 66 17 121/78 96 Laboratory Results Short CBC 12/06/18 12/07/18 Range/Units 12:25 04:23 WBC 6.72 5.18 (4.8-10.8) K/uL Hgb 14.7 13.7 L (14.0-18.0) g/dL Hct 40.0 L 37.8 L (42-52) % Plt Count 212 198 (130-400) K/uL BMP 12/06/18 12/07/18 12:25 04:23 Sodium 137 139 Potassium 3.9 3.8 Chloride 101 105 Carbon Dioxide 28 24 BUN 16 18 Creatinine 0.91 0.97 Glucose 87 141 H Calcium 9.4 8.3 L Liver Function 12/06/18 Range/Units 12:25 Total Bilirubin 1.4 H (0.2-1) mg/dl AST 84 H (15-37) U/L ALT 71 (12-78) U/L Alkaline Phosphatase 59 (45-117) U/L Albumin 4.1 (3.4-5.0) gm/dl Medications Administered Current Inpatient Medications Atorvastatin Calcium ([facility]) [facility] [place]: 01/06/19 08:59 Last Admin: 12/07/18 07:56 Dose: 40 mg Documented by: Carvedilol (Coreg) 6.25 mg PO BID [facility] Stop: 01/05/19 20:59 Last Admin: 12/07/18 07:56 Dose: 6.25 mg Documented by: Epinephrine (Raccemic Epinephrine 2.25% 0.5ml) 0.5 ml NEB Q4 PRN PRN Reason: Allergic Reaction Stop: 01/05/19 18:15 Last Admin: 12/06/18 23:22 Dose: 0.5 ml Documented by: Hydralazine HCl (Hydralazine Hcl) 5 mg IV Q4 PRN PRN Reason: Hypertension Stop: 01/05/19 18:17 Last Admin: 12/06/18 18:37 Dose: 5 mg Documented by: Hydrochlorothiazide (Hctz) 25 mg PO QAM [facility]EE Stop: 01/06/19 10:29 Sodium Chloride (Nss 1000ml) 1,000 mls @ 75 mls/hr IV .[id number] LEE Stop: 01/05/19 16:47 Last Admin: 12/07/18 06:18 Dose: 75 mls/hr Documented by: Miscellaneous (Icu Protocol For Hyperglycemia) 1 ea N/A PRN PRN; Protocol PRN Reason: Hyperglycemia Protocol Stop: 12/08/18 16:47 (1) Angioedema Encounter type: initial encounter Qualified Code(s): T78.3XXA - Angioneurotic edema, initial encounter
--- NOTE | 2018-12-07 11:46 | Discharge Summary ---
Date of Service December 07, 2018 Admission HPI Per Admitting Provider This is a 68 yo male with a PMH of hypertension, hyperlipidemia, tobacco abuse history, seasonal allergies, previous angioedema. This is a 68-year-old male that is in town for the weekend. He lives in [place] but also has a home in [place]. He was tailgating this weekend and this morning at approximately 8:30 AM, identified some tongue and throat swelling. He reports that this is happened 3 times in the past and that he self treated at home with Benadryl and over period of hours to a day it resolved at home. His notes that each episode seems to get more severe. Due to his history he has had presented to the emergency department where he was seen in room A1 and found to have angioedema with dysphonia. He has no respiratory distress and no hypoxia. He does have a coarse voice with no evidence of stridor on examination. The patient denies any recent illness. Aside from tailgating yesterday he has had no new or unusual foods no medications or new prescriptions. The patient denies any fever, chills, sweats, rigors. He has no cough. He has no chest pain or tightness. He has no other acute complaints. The patient does have an allergy to sulfa drugs. He also reports that on previous occasions he has had red or white wine prior to the angioedema. He has no other food or drug allergies per his report. The patient has a history of tobacco abuse with a [id number] history. He states that he states that he quit smoking 40 years ago. Aside from his acute angioedema, the patient has no acute complaints. Admission Exam Per Admitting Provider Physical Exam: GENERAL : No acute distress. EYES: No icterus, gaze conjugate. Pupils equal round reactive to light NOSE: No evidence of epistaxis. No evidence of septal breech MOUTH: No lesions or candidiasis. Tongue is midline. There is soft tissue edema noted. Uvula is edematous. Mallampati score of 4. Posterior oropharynx noted below the uvula NECK: Supple. No stridor. LUNGS: CTA B/L, no wheezes, rales or rhonchi. HEART: Regular, rate controlled. No murmurs or gallops or rubs appreciated ABDOMEN: Soft, NT, ND, BS Present EXTREMITIES: No LE edema, pedal pulses intact. NEURO: A&OX3. No focal deficits appreciated Principal Diagnosis Angioedema secondary to ANABELLA inhibitor versus sulfites from wine Discharge Exam GENERAL : No acute distress. Patient somewhat hyperactive EYES: No icterus, gaze conjugate. Pupils equal round and reactive to light NOSE: No evidence of epistaxis. No evidence of edema or septal breech MOUTH: No lesions or candidiasis. Edema has resolved to the tongue and posteri or pharynx. Mallampati score of 1 NECK: Supple. No cervical lymphadenopathy. Trachea is midline. No appreciation of stridor on auscultation. LUNGS: CTA B/L, no wheezes, rales or rhonchi. No adventitious breath sounds with auscultation HEART: Regular, rate controlled. ABDOMEN: Soft, NT, ND, BS Present EXTREMITIES: No LE edema, pedal pulses intact NEURO: A&OX3. No focal deficits. Discharge Data Allergies Allergy/AdvReac Type Severity Reaction Status Date / Time lisinopril Allergy Severe Angioedema Verified 12/06/18 16:08 sulfite Allergy Swelling Verified 12/06/18 18:23 of Lip/Tongue/Throat Consultations 12/06/18 14:19 ED Decision to Admit Stat 12/06/18 16:48 Consult Case Management - Discharge Planning Routine Consult Health Information Management Stat Consult Loan Documents Closer Routine Ordered Studies C1 esterase is pending Hospital Course (1) Angioedema: Patient with 3 previous episodes of angioedema with each episode becoming more progressive. Patient received racemic epinephrine nebulizer, diphenhydramine, ranitidine, and Solu-Medrol Admitted to the intensive care unit for monitoring * Did not require intubation Patient with dysphonia on admission but resolved by the day of discharge Continue prednisone 40 mg p.o. daily for 3 days then stop EpiPen's will be prescribed on discharge Patient should follow-up with logistics service representative on return visit to [place] Records requested from primary care physician Refugio Cartwright Patient to establish with primary care physician in [place] as he is in the process of moving to [place], [place] (2) Hypertension: Continue Coreg 6.25 mg p.o. twice daily Discontinue lisinopril and never prescribed ANABELLA or arms in the future Continue HCTZ as an outpatient We will add amlodipine 5 mg p.o. daily Follow-up with primary care physician on discharge (3) Hyperlipidemia: Continue atorvastatin (4) History of tobacco abuse: [id number] history. Quit smoking 40 years ago. No need for smoking cessation counseling. (5) DVT prophylaxis: No chemical prophylaxis - patient ambulating well SCDs were used during the hospital stay Total Time Total Time Spent Total Time Spent (In Minutes): 40 Total Time Includes: Examination of the Patient, Discharge Planning, Medication Reconciliation and Communication With Other Providers Discharge Plan Discharge Items Patient Disposition: Home - Self-Care Reason For Visit: ANGIOEDEMA Discharge Diagnosis: Angioedema secondary to lisinopril versus sulfites Health Concerns: ANABELLA/ARB allergy Activity: Resume your previous activity Activity Comment: As tolerated Lifting: None Bathing: No limitations Sexual Activity: When tolerated Exercise/Sports: Gradually increase as tolerated Driving/Machine Use: No limitations Weightbearing: Full weightbearing Non-emergency contact: Primary Care Provider Call non-emergency contact if: your symptoms worsen Follow-up/Referrals: PCP,NO [Primary Care Provider] - Diet: Heart Healthy Addtl Attending Provider Instructions: Did not take any lisinopril Do not take any sulfites including wine Go to the nearest emergency room if swelling occurs again An EpiPen will be prescribed in the event that you have swelling and are not near an emergency room Talk to your family doctor about angioedema related to heart medicines and sulfites Follow-up with an logistics service representative for allergy testing Pending Studies at Discharge: Yes Studies:: C1 esterase Stand-Alone Forms: My [facility] Medications and DC Order Prescriptions: New hydrochlorothiazide 25 mg Tablet 25 mg PO QAM Qty: 30 RF: 0 amlodipine 5 mg tablet 5 mg PO DAILY Qty: 30 RF: 0 prednisone 20 mg tablet 40 mg PO DAILY 3 Days Qty: 6 RF: 0 epinephrine [EpiPen 2-Nikolas] 0.3 mg/0.3 mL auto-injector 0.3 mg IM Q3H PRN (Reason: bronchodilation) Qty: 2 RF: 0 Continued atorvastatin [Lipitor] 40 mg Tablet 40 mg PO QAM RF: 0 carvedilol [Coreg] 6.25 mg Tablet 6.25 mg PO BID RF: 0 loratadine [Claritin] 10 mg Tablet 10 mg PO QAM RF: 0 Discontinued lisinopril-hydrochlorothiazide [Zestoretic] 20-25 mg Tablet 1 tab PO QAM RF: 0 Discharge Orders: Discharge Order (Routine); Ordered 10/21/19 Ordered By: Marco Antonio Webb Admission Data Admit Date/Time: 12/06/18 16:01 Attending Provider: Scott Shukla Admit Provider: Bright Bryant Primary Care Provider: PCP,NO Other Providers: Roel Hernandez ; Bright Bryant Other Interventions: Discharge Summary Assessment (RN) Last Done: 12/07/18 11:32 DC Date/Time DO NOT enter until pt leaves facility: 12/07/18 12:25 Supervising Physician Co-Signing Physician Notes Attending addendum The patient was seen and examined in ICU on the day of discharge He denies any complaints of sore throat, throat swelling, tongue swelling and no shortness of breath He remains hemodynamically stable He will be discharged from the ICU today Discharge instructions, medications and recommendations were reviewed thoroughly Reviewed with the discharge instructions and summary as by Marco Antonio Shukla
[2018-12-09 12:18] LABS: Complement C3 107 MG/DL (82-185); Complement Total(CH50) 56 U/mL (31-60)
[2018-12-09 21:03] LABS: C1 Esterase Inhibitor 32 mg/dL (21-39)
== END 2018-12-07 12:25 | disposition home or self-care (01) | DRG 916 ==
LOC: ED 12:06 → 1E 16:01